=== PATIENT | male | born 2005 | race Caucasian/White ===

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

== ENCOUNTER → 2025-01-18 | Outpatient (CLI) | payer MEDICAID ==
[2025-01-18 13:57] LABS: CHOLESTEROL LEVEL 186.0 MG/DL (<200); CHOLESTEROL RISK RATIO 3.15 (<5); LDL CHOLESTEROL 118.2 MG/DL (<100); NON-HDL-C 127.0 MG/DL; TRIGLYCERIDES LEVEL 44.0 MG/DL (<150)
[2025-01-18 13:59] LABS: TOTAL 25(OH) VITAMIN D 15.5 NG/ML (20.0-100.0)
== END ==
LOC: M PLALAB 10:00
PROVIDERS: ATTEND Physician Assistant
DX: Z00.00 Encounter for general adult medical examination without abnormal findings (principal)